=== PATIENT | male | born 1965 | race Caucasian/White ===

== ENCOUNTER 2024-09-27 15:26 | Inpatient (IN) | payer MEDICAID ==
[~2024-09-27] VITALS: Ht 182.9 cm; Wt 84.7 kg
[2024-09-27] MEDS: HEPARIN DRIP DVT/PE -**PHARMACIST TO DOSE IV ONE (15:50)
[2024-09-27] MEDS: HEPARIN DRIP INITAL BOLUS --- DO NOT GIVE/ORDER MC ONE (15:55)
[2024-09-27] MEDS ORDERED: heparin 25,000 UNIT/250ml bag 250 ML IV PRN (15:55)
[2024-09-27] MEDS: heparin 25,000 UNIT/250ml bag 250 ML IV PRN (16:21)
[2024-09-27 16:32] LABS: BASOPHILS # (AUTO) 0.1 X10'3 (0-0.2); BASOPHILS % (AUTO) 0.5 % (0-1); EOSINOPHILS # (AUTO) 0.1 X10'3 (0-0.9); EOSINOPHILS % (AUTO) 0.8 % (0-6); HEMATOCRIT 29.5 % (42.0-52.0); HEMOGLOBIN 9.6 g/dl (14.0-17.9); LYMPHOCYTES % (AUTO) 7.2 % (21-51); MEAN CORPUSCULAR HGB CONC 32.4 g/dL (33.0-36.5); MEAN CORPUSCULAR VOLUME 80.2 FL (78-98); MEAN PLATELET VOLUME 7.3 FL (7.4-10.4); MONOCYTES # (AUTO) 0.7 X10'3 (0-0.9); MONOCYTES % (AUTO) 5.2 % (2-12); NEUTROPHILS # (AUTO) 12.1 X10'3 (1.8-7.7); NEUTROPHILS % (AUTO) 86.3 % (42-75); PLATELET COUNT 385 X10'3 (140-440); RED BLOOD COUNT 3.68 X10'6 (4.70-6.10); RED CELL DISTRIBUTION WIDTH 14.9 % (11.5-14.5)
[2024-09-27 16:49] LABS: ALBUMIN 2.5 G/DL (3.4-5.0); ANION GAP 10 (8-16); BLOOD UREA NITROGEN 14 MG/DL (7-18); BUN/CREATININE RATIO 15.1 (10.0-20.0); CALCIUM 8.6 MG/DL (8.5-10.1); CHLORIDE 101 MMOL/L (99-107); CREATININE 0.93 MG/DL (0.60-1.10); GLUCOSE 92 MG/DL (70-104); POTASSIUM 4.3 MMOL/L (3.5-5.1); SODIUM 134 MMOL/L (135-145); TOTAL CARBON DIOXIDE 23.4 MMOL/L (24-32); eCRCL 96 ML/MIN; eGFR 84 ML/MIN
[2024-09-27] MEDS: MESSAGE TO NURSING IV ONE ×2 (16:55)
[2024-09-27] MEDS ORDERED: magnesium sulf-water 2g/50mL 50 ML IV PRN (18:10)
[2024-09-27] MEDS ORDERED: magnesium hydroxide 30ml (MOM) UD suspension PO PRN (18:10)
[2024-09-27] MEDS ORDERED: magnesium sulf-water 4G/100mL 100 ML IV PRN (18:10)
[2024-09-27] MEDS ORDERED: magnesium Cl slow-release 64mg tablet PO PRN (18:10)
[2024-09-27] MEDS ORDERED: HYDROcodone/acetaminophen 5mg/325mg tablet PO PRN (18:10)
[2024-09-27] MEDS ORDERED: potassium Cl 40MEQ/1/2NS 520ml 520 ML IV PRN (18:10)
[2024-09-27] MEDS ORDERED: potassium Cl 20 mEq SR tablet PO PRN ×2 (18:10)
[2024-09-27] MEDS ORDERED: mag hydrox/Alum hydrox/simeth 30ml oral suspension PO PRN (18:10)
[2024-09-27] MEDS ORDERED: ondansetron/PF 4mg/2ml inj IV PRN (18:10)
[2024-09-27] MEDS ORDERED: acetaminophen 325mg tablet PO PRN (18:10)
[2024-09-27] MEDS ORDERED: aminophylline 500mg/20ml vial IV PRN (19:30)
[2024-09-27] MEDS ORDERED: nitroGLYCERIN 0.4mg SUBLingual tab SL PRN (19:30)
[2024-09-27] MEDS ORDERED: metoprolol tartrate 1mg/ml inj IV PRN (19:30)
[2024-09-27] MEDS: K and/or MAG REPLACEMENT MC SCH (20:00)
[2024-09-27] MEDS: docusate sod 100mg capsule PO SCH (20:00)
[2024-09-27 22:30] VITALS: BP 127/65; PULSE 112; RESP 18; TEMP 98.7
[2024-09-27 23:00] VITALS: RESP 18; O2SAT 98
[2024-09-27] MEDS: heparin 10,000 units/1 ML INJ IV PRN (23:42)
[2024-09-28] VITALS (12 sets, daily range): BP systolic 97–119; BP diastolic 47–62; PULSE 100–109; RESP 14–20; TEMP 97.4–98.5; O2SAT 95–99
[2024-09-28] MEDS: MESSAGE TO NURSING IV ONE ×4 (00:11→21:24)
[2024-09-28 06:34] LABS: BASOPHILS # (AUTO) 0.1 X10'3 (0-0.2); BASOPHILS % (AUTO) 0.4 % (0-1); EOSINOPHILS # (AUTO) 0.1 X10'3 (0-0.9); EOSINOPHILS % (AUTO) 0.6 % (0-6); HEMATOCRIT 29.7 % (42.0-52.0); HEMOGLOBIN 9.5 g/dl (14.0-17.9); LYMPHOCYTES # (AUTO) 1.3 X10'3 (1.1-4.8); LYMPHOCYTES % (AUTO) 9.5 % (21-51); MEAN CORPUSCULAR HEMOGLOBIN 25.5 PG (27.0-31.0); MEAN CORPUSCULAR VOLUME 79.5 FL (78-98); MEAN PLATELET VOLUME 7.6 FL (7.4-10.4); MONOCYTES % (AUTO) 7.1 % (2-12); NEUTROPHILS # (AUTO) 11.5 X10'3 (1.8-7.7); NEUTROPHILS % (AUTO) 82.4 % (42-75); PLATELET COUNT 375 X10'3 (140-440); RED BLOOD COUNT 3.73 X10'6 (4.70-6.10); WHITE BLOOD COUNT 13.9 X10'3 (4.5-11.0)
[2024-09-28 06:52] LABS: ALANINE AMINOTRANSFERASE 41 U/L (12-78); ALBUMIN 2.4 G/DL (3.4-5.0); ALBUMIN/GLOBULIN RATIO 0.5 (1.1-1.5); ALKALINE PHOSPHATASE 132 IU/L (46-116); ANION GAP 8 (8-16); ASPARTATE AMINO TRANSFERASE 29 U/L (10-37); BLOOD UREA NITROGEN 11 MG/DL (7-18); BUN/CREATININE RATIO 13.1 (10.0-20.0); CALCIUM 8.5 MG/DL (8.5-10.1); CHLORIDE 99 MMOL/L (99-107); CREATININE 0.84 MG/DL (0.60-1.10); GLUCOSE 98 MG/DL (70-104); POTASSIUM 4.3 MMOL/L (3.5-5.1); SODIUM 132 MMOL/L (135-145); TOTAL CARBON DIOXIDE 25.2 MMOL/L (24-32); TOTAL PROTEIN 6.8 G/DL (6.4-8.2); eCRCL 106 ML/MIN; eGFR > 90 ML/MIN
[2024-09-28] MEDS: morphine 2 MG/ML inj. syringe IV PRN ×2 (07:02→11:40)
[2024-09-28] MEDS: regadenoson 0.4mg/5ml syringe IV PRN (10:11)
[2024-09-28] MEDS ORDERED: IBUP-2417 PO (11:31)
[2024-09-28] MEDS: ringers solution, lacted 1,000 ML IV ONE (16:11)
[2024-09-28] MEDS: HYDROcodone/acetaminophen 10/325mg tab PO PRN (19:30)
[2024-09-29] VITALS (32 sets, daily range): BP systolic 102–135; BP diastolic 42–69; PULSE 86–110; RESP 12–25; TEMP 96.7–99.5; O2SAT 94–100
[2024-09-29 03:20] LABS: BASOPHILS # (AUTO) 0.1 X10'3 (0-0.2); BASOPHILS % (AUTO) 0.7 % (0-1); EOSINOPHILS # (AUTO) 0.1 X10'3 (0-0.9); EOSINOPHILS % (AUTO) 0.8 % (0-6); HEMATOCRIT 27.3 % (42.0-52.0); LYMPHOCYTES # (AUTO) 1.1 X10'3 (1.1-4.8); LYMPHOCYTES % (AUTO) 7.7 % (21-51); MEAN CORPUSCULAR HEMOGLOBIN 25.7 PG (27.0-31.0); MEAN CORPUSCULAR HGB CONC 32.9 g/dL (33.0-36.5); MEAN CORPUSCULAR VOLUME 78.1 FL (78-98); MEAN PLATELET VOLUME 7.3 FL (7.4-10.4); MONOCYTES % (AUTO) 6.7 % (2-12); NEUTROPHILS # (AUTO) 11.9 X10'3 (1.8-7.7); NEUTROPHILS % (AUTO) 84.1 % (42-75); PLATELET COUNT 361 X10'3 (140-440); RED BLOOD COUNT 3.49 X10'6 (4.70-6.10); RED CELL DISTRIBUTION WIDTH 15.2 % (11.5-14.5); WHITE BLOOD COUNT 14.2 X10'3 (4.5-11.0)
[2024-09-29 03:37] LABS: % IRON SATURATION 11 % (11-46); IRON 20 UG/DL (53-167); TOTAL IRON BINDING CAPACITY 176 UG/DL (259-388)
[2024-09-29 03:56] LABS: ALANINE AMINOTRANSFERASE 33 U/L (12-78); ALBUMIN 2.3 G/DL (3.4-5.0); ALBUMIN/GLOBULIN RATIO 0.5 (1.1-1.5); ALKALINE PHOSPHATASE 115 IU/L (46-116); ANION GAP 8 (8-16); ASPARTATE AMINO TRANSFERASE 22 U/L (10-37); BILIRUBIN,TOTAL 0.7 MG/DL (0.1-1.0); BLOOD UREA NITROGEN 15 MG/DL (7-18); BUN/CREATININE RATIO 19.5 (10.0-20.0); CALCIUM 8.3 MG/DL (8.5-10.1); CHLORIDE 98 MMOL/L (99-107); CREATININE 0.77 MG/DL (0.60-1.10); FERRITIN 672 NG/ML (26-388); GLUCOSE 112 MG/DL (70-104); SODIUM 131 MMOL/L (135-145); TOTAL CARBON DIOXIDE 25.4 MMOL/L (24-32); TOTAL PROTEIN 6.6 G/DL (6.4-8.2); eCRCL 116 ML/MIN; eGFR > 90 ML/MIN
[2024-09-29] MEDS: MESSAGE TO NURSING IV ONE ×3 (06:02→23:25)
[2024-09-29 11:01] LABS: APTT 46 SECONDS (22-32)
[2024-09-29] MEDS ORDERED: heparin 10,000 units/1 ML INJ ONE (12:14)
[2024-09-29] MEDS ORDERED: rocuronium 10mg/ml inj IV ONE (15:19)
[2024-09-29] MEDS ORDERED: fentaNYL /PF 50mcg/ml 5ml ampule ONE (15:19)
[2024-09-29] MEDS ORDERED: sevoflurane 250ml liquid IH ONE (15:19)
[2024-09-29] MEDS ORDERED: propofol inj 20 ML IV ONE (15:19)
[2024-09-29] MEDS ORDERED: midazolam 1 mg/ML 2ml injection ONE (15:19)
[2024-09-29] MEDS ORDERED: ceFAZolin 1000mg inj ONE ×2 (15:55)
[2024-09-29] MEDS: ceFAZolin/D5W- 1GM premix 50 ML IV SCH (16:00)
[2024-09-29] MEDS ORDERED: heparin 25,000 UNIT/250ml bag 250 ML IV ONE (16:15)
[2024-09-29] MEDS ORDERED: dexamethasone sod phosphate 4mg/ml inj. ONE (16:34)
[2024-09-29] MEDS ORDERED: ondansetron/PF 4mg/2ml inj ONE (16:36)
[2024-09-29] MEDS ORDERED: HYDROmorphone/PF 0.2 MG/ML SYRINGE IV PRN (16:45)
[2024-09-29] MEDS: ringers solution, lacted 1,000 ML IV SCH (16:45)
[2024-09-29] MEDS ORDERED: labetalol 20mg/4ml (5mg/ml) syringe IV PRN (16:45)
[2024-09-29] MEDS ORDERED: meperidine/PF 25mg/ml syringe IV PRN (16:45)
[2024-09-29] MEDS ORDERED: ondansetron/PF 4mg/2ml inj IV PRN ×2 (16:45→19:55)
[2024-09-29] MEDS ORDERED: morphine 2 MG/ML inj. syringe IV PRN (16:45)
[2024-09-29] MEDS ORDERED: heparin 1,000unit/ml 10ml vial 10 ML ONE (17:23)
[2024-09-29] MEDS ORDERED: albumin (Human) 5% 250ml 250 ML IV ONE ×2 (17:48)
[2024-09-29] MEDS ORDERED: iohexol 300 MG/1 ML 50ml polymer ONE (18:20)
[2024-09-29] MEDS ORDERED: fentaNYL/PF 50MCG/1 ML 2ML syringe ONE (18:35)
[2024-09-29] MEDS ORDERED: sugammadex 200mg/2ml injection IV ONE (18:38)
[2024-09-29 19:09] LABS: APTT > 139 SECONDS (22-32)
[2024-09-29] MEDS: morphine 4 MG/ML inj SYRINge IV PRN (19:15)
[2024-09-29 19:27] LABS: BASOPHILS % (AUTO) 0.4 % (0-1); EOSINOPHILS % (AUTO) 0.2 % (0-6); HEMATOCRIT 25.6 % (42.0-52.0); HEMOGLOBIN 8.5 g/dl (14.0-17.9); LYMPHOCYTES # (AUTO) 0.6 X10'3 (1.1-4.8); LYMPHOCYTES % (AUTO) 4.4 % (21-51); MEAN CORPUSCULAR HEMOGLOBIN 25.9 PG (27.0-31.0); MEAN CORPUSCULAR HGB CONC 33.1 g/dL (33.0-36.5); MEAN CORPUSCULAR VOLUME 78.4 FL (78-98); MEAN PLATELET VOLUME 7.1 FL (7.4-10.4); MONOCYTES # (AUTO) 0.4 X10'3 (0-0.9); MONOCYTES % (AUTO) 3.1 % (2-12); NEUTROPHILS # (AUTO) 12.7 X10'3 (1.8-7.7); NEUTROPHILS % (AUTO) 91.9 % (42-75); PLATELET COUNT 308 X10'3 (140-440); RED BLOOD COUNT 3.27 X10'6 (4.70-6.10); RED CELL DISTRIBUTION WIDTH 14.6 % (11.5-14.5); WHITE BLOOD COUNT 13.8 X10'3 (4.5-11.0)
[2024-09-29] MEDS: acetaminophen 1,000mg/100ml IV 100 ML IV PRN (19:27)
[2024-09-29 19:41] LABS: ALANINE AMINOTRANSFERASE 24 U/L (12-78); ALBUMIN 2.5 G/DL (3.4-5.0); ALBUMIN/GLOBULIN RATIO 0.6 (1.1-1.5); ALKALINE PHOSPHATASE 106 IU/L (46-116); ANION GAP 8 (8-16); ASPARTATE AMINO TRANSFERASE 21 U/L (10-37); BLOOD UREA NITROGEN 13 MG/DL (7-18); BUN/CREATININE RATIO 13.8 (10.0-20.0); CALCIUM 8.1 MG/DL (8.5-10.1); CHLORIDE 101 MMOL/L (99-107); CREATININE 0.94 MG/DL (0.60-1.10); GLUCOSE 131 MG/DL (70-104); POTASSIUM 4.3 MMOL/L (3.5-5.1); SODIUM 132 MMOL/L (135-145); TOTAL CARBON DIOXIDE 22.7 MMOL/L (24-32); TOTAL PROTEIN 6.6 G/DL (6.4-8.2); eCRCL 95 ML/MIN; eGFR 83 ML/MIN
[2024-09-29] MEDS ORDERED: naloxone 0.4 mg/ml inj IV PRN (19:55)
[2024-09-29] MEDS ORDERED: HYDROcodone/acetaminophen 10/325mg tab PO PRN (19:55)
[2024-09-29] MEDS ORDERED: ceFAZolin 1GM/D5W- ADD-VANTAGE 50 ML IV SCH (20:00)
[2024-09-29] MEDS: HYDROmorphone/PF 0.2 MG/ML SYRINGE IV PRN (21:42)
[2024-09-29] MEDS: normal saline 1000ml 1,000 ML IV SCH (23:25)
[2024-09-29] MEDS: ceFAZolin 1GM/D5W- ADD-VANTAGE 50 ML IV SCH (23:32)
[2024-09-30] VITALS (28 sets, daily range): BP systolic 96–131; BP diastolic 42–63; PULSE 83–101; RESP 9–21; TEMP 96–96.7; O2SAT 93–99
[2024-09-30] MEDS: HYDROmorphone inj. 0.5 MG/0.5 ML DISP.SYRIN IV PRN (00:31)
[2024-09-30 02:42] LABS: BASOPHILS % (AUTO) 0.3 % (0-1); EOSINOPHILS % (AUTO) 0.1 % (0-6); HEMATOCRIT 25.5 % (42.0-52.0); HEMOGLOBIN 8.6 g/dl (14.0-17.9); LYMPHOCYTES # (AUTO) 0.5 X10'3 (1.1-4.8); LYMPHOCYTES % (AUTO) 5.7 % (21-51); MEAN CORPUSCULAR HEMOGLOBIN 26.7 PG (27.0-31.0); MEAN CORPUSCULAR VOLUME 78.7 FL (78-98); MEAN PLATELET VOLUME 7.4 FL (7.4-10.4); MONOCYTES # (AUTO) 0.2 X10'3 (0-0.9); MONOCYTES % (AUTO) 2.6 % (2-12); NEUTROPHILS # (AUTO) 8.6 X10'3 (1.8-7.7); NEUTROPHILS % (AUTO) 91.3 % (42-75); PLATELET COUNT 281 X10'3 (140-440); RED BLOOD COUNT 3.24 X10'6 (4.70-6.10); RED CELL DISTRIBUTION WIDTH 15.1 % (11.5-14.5); WHITE BLOOD COUNT 9.4 X10'3 (4.5-11.0)
[2024-09-30 02:57] LABS: ALANINE AMINOTRANSFERASE 25 U/L (12-78); ALBUMIN 2.5 G/DL (3.4-5.0); ALBUMIN/GLOBULIN RATIO 0.6 (1.1-1.5); ALKALINE PHOSPHATASE 107 IU/L (46-116); ANION GAP 8 (8-16); ASPARTATE AMINO TRANSFERASE 21 U/L (10-37); BILIRUBIN,TOTAL 0.5 MG/DL (0.1-1.0); BLOOD UREA NITROGEN 15 MG/DL (7-18); BUN/CREATININE RATIO 17.6 (10.0-20.0); CALCIUM 8.3 MG/DL (8.5-10.1); CHLORIDE 102 MMOL/L (99-107); CREATININE 0.85 MG/DL (0.60-1.10); GLUCOSE 182 MG/DL (70-104); POTASSIUM 4.4 MMOL/L (3.5-5.1); SODIUM 134 MMOL/L (135-145); TOTAL CARBON DIOXIDE 23.8 MMOL/L (24-32); TOTAL PROTEIN 6.8 G/DL (6.4-8.2); eCRCL 105 ML/MIN; eGFR > 90 ML/MIN
[2024-09-30] MEDS ORDERED: DOXY25TA PO (17:56)
[2024-09-30] MEDS: aspirin 81mg, enteric-coated 1 TAB TABLET.DR PO ONE (20:33)
[2024-09-30] MEDS: ceFOXitin sod/dextrose 2g/50ml 50 ML IV SCH (20:58)
[2024-10-01] VITALS (19 sets, daily range): BP systolic 118–140; BP diastolic 55–76; PULSE 96–109; RESP 14–28; TEMP 97.3–98.1; O2SAT 85–100
[2024-10-01 03:23] LABS: BASOPHILS # (AUTO) 0.1 X10'3 (0-0.2); BASOPHILS % (AUTO) 0.5 % (0-1); EOSINOPHILS # (AUTO) 0.1 X10'3 (0-0.9); HEMATOCRIT 26.9 % (42.0-52.0); HEMOGLOBIN 8.9 g/dl (14.0-17.9); LYMPHOCYTES # (AUTO) 1.5 X10'3 (1.1-4.8); LYMPHOCYTES % (AUTO) 13.1 % (21-51); MEAN CORPUSCULAR HEMOGLOBIN 26.1 PG (27.0-31.0); MEAN PLATELET VOLUME 7.3 FL (7.4-10.4); MONOCYTES # (AUTO) 1.2 X10'3 (0-0.9); MONOCYTES % (AUTO) 10.3 % (2-12); NEUTROPHILS # (AUTO) 8.6 X10'3 (1.8-7.7); NEUTROPHILS % (AUTO) 75.1 % (42-75); PLATELET COUNT 324 X10'3 (140-440); RED CELL DISTRIBUTION WIDTH 14.9 % (11.5-14.5); WHITE BLOOD COUNT 11.4 X10'3 (4.5-11.0)
[2024-10-01 03:41] LABS: ALANINE AMINOTRANSFERASE 22 U/L (12-78); ALBUMIN 2.4 G/DL (3.4-5.0); ALBUMIN/GLOBULIN RATIO 0.6 (1.1-1.5); ALKALINE PHOSPHATASE 98 IU/L (46-116); ANION GAP 5 (8-16); ASPARTATE AMINO TRANSFERASE 15 U/L (10-37); BILIRUBIN,TOTAL 0.3 MG/DL (0.1-1.0); BLOOD UREA NITROGEN 20 MG/DL (7-18); BUN/CREATININE RATIO 18.2 (10.0-20.0); CALCIUM 8.3 MG/DL (8.5-10.1); CHLORIDE 103 MMOL/L (99-107); GLUCOSE 116 MG/DL (70-104); MAGNESIUM 2.2 MG/DL (1.5-2.4); SODIUM 135 MMOL/L (135-145); TOTAL CARBON DIOXIDE 27.5 MMOL/L (24-32); TOTAL PROTEIN 6.4 G/DL (6.4-8.2); eCRCL 81 ML/MIN; eGFR 69 ML/MIN
[2024-10-01] MEDS: aspirin 81mg, enteric-coated 1 TAB TABLET.DR PO SCH (08:53)
[2024-10-01] MEDS: metoprolol tartrate 12.5mg (1/2 tablet) PO SCH (12:10)
[2024-10-02 02:00] VITALS: BP 147/67; PULSE 111; RESP 22; TEMP 97.6; O2SAT 95
[2024-10-02 06:00] VITALS: BP 143/76; PULSE 103; RESP 24; TEMP 97.1; O2SAT 92
[2024-10-02 06:18] LABS: BASOPHILS # (AUTO) 0.1 X10'3 (0-0.2); BASOPHILS % (AUTO) 0.5 % (0-1); EOSINOPHILS # (AUTO) 0.1 X10'3 (0-0.9); EOSINOPHILS % (AUTO) 0.7 % (0-6); HEMATOCRIT 28.9 % (42.0-52.0); HEMOGLOBIN 9.7 g/dl (14.0-17.9); LYMPHOCYTES # (AUTO) 1.1 X10'3 (1.1-4.8); LYMPHOCYTES % (AUTO) 9.2 % (21-51); MEAN CORPUSCULAR HEMOGLOBIN 26.4 PG (27.0-31.0); MEAN CORPUSCULAR HGB CONC 33.4 g/dL (33.0-36.5); MEAN CORPUSCULAR VOLUME 79.1 FL (78-98); MEAN PLATELET VOLUME 7.4 FL (7.4-10.4); MONOCYTES # (AUTO) 1.2 X10'3 (0-0.9); MONOCYTES % (AUTO) 9.7 % (2-12); NEUTROPHILS # (AUTO) 9.8 X10'3 (1.8-7.7); NEUTROPHILS % (AUTO) 79.9 % (42-75); PLATELET COUNT 388 X10'3 (140-440); RED BLOOD COUNT 3.66 X10'6 (4.70-6.10); RED CELL DISTRIBUTION WIDTH 15.3 % (11.5-14.5); WHITE BLOOD COUNT 12.2 X10'3 (4.5-11.0)
[2024-10-02 06:51] LABS: ALANINE AMINOTRANSFERASE 24 U/L (12-78); ALBUMIN 2.6 G/DL (3.4-5.0); ALBUMIN/GLOBULIN RATIO 0.6 (1.1-1.5); ALKALINE PHOSPHATASE 118 IU/L (46-116); ANION GAP 7 (8-16); ASPARTATE AMINO TRANSFERASE 15 U/L (10-37); BILIRUBIN,TOTAL 0.5 MG/DL (0.1-1.0); BLOOD UREA NITROGEN 12 MG/DL (7-18); BUN/CREATININE RATIO 17.1 (10.0-20.0); CALCIUM 8.9 MG/DL (8.5-10.1); CHLORIDE 101 MMOL/L (99-107); GLUCOSE 114 MG/DL (70-104); POTASSIUM 4.3 MMOL/L (3.5-5.1); SODIUM 135 MMOL/L (135-145); TOTAL CARBON DIOXIDE 27.2 MMOL/L (24-32); TOTAL PROTEIN 6.9 G/DL (6.4-8.2); eCRCL 128 ML/MIN; eGFR > 90 ML/MIN
[2024-10-02 10:00] VITALS: BP 129/56; PULSE 103; RESP 19; TEMP 97.6; O2SAT 98
[2024-10-02] MEDS ORDERED: LOP12.5T PO (11:52)
[2024-10-02] MEDS ORDERED: ASPI-1071 PO (11:52)
== END 2024-10-02 13:40 | disposition home or self-care (01) | DRG 181 ==
LOC: ER 15:28 → UNDOADMIN 18:06 → ED HOLD 18:06 → ORTHO 4S 22:30 → CICU 2S 09-29 23:00 → PCU 3S 10-01 13:16
PROVIDERS: ADMIT Internal Medicine; ATTEND Internal Medicine
PROC: 4A02XM4 Measurement of Cardiac Total Activity, External Approach (ICD-10-PCS; 2024-09-28)
PROC: 3E033HZ Introduction of Radioactive Substance into Peripheral Vein, Percutaneous Approach (ICD-10-PCS; 2024-09-28)
PROC: 041K09L Bypass Right Femoral Artery to Popliteal Artery with Autologous Venous Tissue, Open Approach (ICD-10-PCS; principal; 2024-09-29 15:19)
DX: I70.221 Atherosclerosis of native arteries of extremities with rest pain, right leg (principal); E44.1 Mild protein-calorie malnutrition; E87.1 Hypo-osmolality and hyponatremia; D64.9 Anemia, unspecified; Z87.891 Personal history of nicotine dependence; Z68.25 Body mass index [BMI] 25.0-25.9, adult
CPT/HCPCS: 36415; 73551; 76000; 78452; 80048; 80053; 82607; 82728; 82948; 83540; 83550; 83735; 85025; 85730; 86885; 86900; 86901; 86920; 87081; 93005; 93017; 93922; 93926; 93970; 99285; A4615; A4618; A6253; A6258; A6260; A6402; A6446; A6449; A6455; A7000; A9500; C1758; G0378; J0131; J0690; J0694; J1100; J1171; J1644; J2250; J2270; J2405; J2704; J2785; J3010; J3490; J7030; J7040; J7120; P9045; Q9967

== ENCOUNTER 2024-11-02 08:32 | Outpatient (CLI) | payer MEDICAID ==
[~2024-11-02 08:32] MED LIST: ASPI-1071 PO; DOXY25TA PO; IBUP-2417 PO; LOP12.5T PO
== END 2024-11-02 23:59 | disposition home or self-care (01) ==
LOC: VAS 08:32
PROVIDERS: ATTEND Surgery
DX: I73.9 Peripheral vascular disease, unspecified (principal)
CPT/HCPCS: 93922; 93926

== ENCOUNTER 2024-11-09 15:18 | Inpatient (IN) | payer MEDICAID ==
[~2024-11-09] VITALS: Ht 182.9 cm; Wt 85.0 kg
[2024-11-09 16:25] VITALS: BP 98/65; PULSE 81; RESP 18; TEMP 97.9; O2SAT 99
[2024-11-09] MEDS ORDERED: magnesium hydroxide 30ml (MOM) UD suspension PO PRN (17:45)
[2024-11-09] MEDS ORDERED: acetaminophen 325mg tablet PO PRN (17:45)
[2024-11-09] MEDS ORDERED: ondansetron/PF 4mg/2ml inj IV PRN (17:45)
[2024-11-09] MEDS ORDERED: potassium Cl 40MEQ/1/2NS 520ml 520 ML IV PRN (17:45)
[2024-11-09] MEDS ORDERED: potassium Cl 20 mEq SR tablet PO PRN ×2 (17:45)
[2024-11-09] MEDS ORDERED: mag hydrox/Alum hydrox/simeth 30ml oral suspension PO PRN (17:45)
[2024-11-09] MEDS ORDERED: magnesium sulf-water 2g/50mL 50 ML IV PRN (17:45)
[2024-11-09] MEDS ORDERED: magnesium sulf-water 4G/100mL 100 ML IV PRN (17:45)
[2024-11-09 18:00] VITALS: BP 98/65; PULSE 81; RESP 18; TEMP 97.9; O2SAT 99
[2024-11-09] MEDS ORDERED: oxyCODONE/APAP 5-325mg tablet PO PRN (18:40)
[2024-11-09] MEDS ORDERED: CYCL-920 PO (18:49)
[2024-11-09] MEDS: K and/or MAG REPLACEMENT MC SCH (20:00)
[2024-11-09] MEDS: oxyCODONE/APAP 10/325mg tablet PO PRN (20:21)
[2024-11-09] MEDS: docusate sod 100mg capsule PO SCH (20:21)
[2024-11-09 22:00] VITALS: BP 89/29; PULSE 82; RESP 18; TEMP 97.5; O2SAT 98
[2024-11-10 01:18] VITALS: RESP 16; O2SAT 98
[2024-11-10] MEDS: heparin, porcine 5000 units/ml vial SQ SCH (01:27)
[2024-11-10] MEDS: normal saline 1000ml 1,000 ML IV SCH (01:39)
[2024-11-10] MEDS: HYDROmorphone inj. 0.5 MG/0.5 ML DISP.SYRIN IV PRN (05:47)
[2024-11-10 06:00] VITALS: BP 128/59; PULSE 85; RESP 17; TEMP 98.6; O2SAT 98
[2024-11-10 06:03] LABS: BASOPHILS # (AUTO) 0.1 X10'3 (0-0.2); BASOPHILS % (AUTO) 0.6 % (0-1); EOSINOPHILS # (AUTO) 0.1 X10'3 (0-0.9); EOSINOPHILS % (AUTO) 0.8 % (0-6); HEMATOCRIT 35.2 % (42.0-52.0); HEMOGLOBIN 11.2 g/dl (14.0-17.9); LYMPHOCYTES # (AUTO) 1.5 X10'3 (1.1-4.8); LYMPHOCYTES % (AUTO) 15.6 % (21-51); MEAN CORPUSCULAR HEMOGLOBIN 27.4 PG (27.0-31.0); MEAN CORPUSCULAR HGB CONC 31.7 g/dL (33.0-36.5); MEAN CORPUSCULAR VOLUME 86.4 FL (78-98); MEAN PLATELET VOLUME 8.3 FL (7.4-10.4); MONOCYTES % (AUTO) 10.8 % (2-12); NEUTROPHILS % (AUTO) 72.2 % (42-75); PLATELET COUNT 208 X10'3 (140-440); RED BLOOD COUNT 4.07 X10'6 (4.70-6.10); RED CELL DISTRIBUTION WIDTH 21.5 % (11.5-14.5); WHITE BLOOD COUNT 9.7 X10'3 (4.5-11.0)
[2024-11-10 06:30] LABS: ALBUMIN 2.6 G/DL (3.4-5.0); ALBUMIN/GLOBULIN RATIO 0.9 (1.1-1.5); ALKALINE PHOSPHATASE 320 IU/L (46-116); ANION GAP 13 (8-16); ASPARTATE AMINO TRANSFERASE 956 U/L (10-37); BILIRUBIN,TOTAL 1.3 MG/DL (0.1-1.0); BLOOD UREA NITROGEN 80 MG/DL (7-18); BUN/CREATININE RATIO 37.7 (10.0-20.0); CALCIUM 7.9 MG/DL (8.5-10.1); CHLORIDE 101 MMOL/L (99-107); CREATININE 2.12 MG/DL (0.60-1.10); GLUCOSE 100 MG/DL (70-104); MAGNESIUM 2.6 MG/DL (1.5-2.4); POTASSIUM 4.1 MMOL/L (3.5-5.1); SODIUM 133 MMOL/L (135-145); TOTAL CARBON DIOXIDE 19.2 MMOL/L (24-32); TOTAL PROTEIN 5.4 G/DL (6.4-8.2); eCRCL 42 ML/MIN; eGFR 32 ML/MIN
[2024-11-10 06:34] LABS: ALANINE AMINOTRANSFERASE 1968 U/L (12-78)
[2024-11-10] MEDS: OLANZapine **IM** 10 mg inj. IM ONE ×2 (07:51→16:17)
[2024-11-10 08:52] LABS: ANISOCYTOSIS 3+; BURR CELLS 1+; PLATELET ESTIMATE NORMAL
[2024-11-10 08:53] LABS: ELLIPTOCYTES FEW
[2024-11-10 08:54] LABS: POLYCHROMASIA FEW
[2024-11-10 11:00] VITALS: BP 113/62; PULSE 80; RESP 19; TEMP 97.8; O2SAT 97
[2024-11-10] MEDS: HYDROmorphone 1 mg/ml syringe IV PRN (16:16)
[2024-11-10 18:00] VITALS: BP 131/56; PULSE 92; RESP 17; TEMP 97.5; O2SAT 98
[2024-11-10 22:00] VITALS: BP 123/50; PULSE 70; RESP 16; TEMP 98.4; O2SAT 98
[2024-11-11 06:00] VITALS: BP 155/63; PULSE 77; RESP 16; TEMP 98.7; O2SAT 98
[2024-11-11 08:33] LABS: HBSAG SCREEN Negative (Negative); HEP A AB, IGM Negative (Negative); HEP B CORE AB, IGM Negative (Negative)
[2024-11-11] MEDS: aspirin 81mg tab.chew PO SCH (09:24)
[2024-11-11] MEDS: clopidogrel 75mg tablet PO SCH (09:25)
[2024-11-11 10:00] VITALS: BP 123/55; PULSE 100; RESP 16; TEMP 97.4; O2SAT 96
[2024-11-11 10:58] LABS: BASOPHILS % (AUTO) 0.5 % (0-1); EOSINOPHILS % (AUTO) 0.2 % (0-6); HEMATOCRIT 32.6 % (42.0-52.0); HEMOGLOBIN 10.4 g/dl (14.0-17.9); LYMPHOCYTES # (AUTO) 0.9 X10'3 (1.1-4.8); LYMPHOCYTES % (AUTO) 10.3 % (21-51); MEAN CORPUSCULAR HEMOGLOBIN 27.8 PG (27.0-31.0); MEAN CORPUSCULAR HGB CONC 31.9 g/dL (33.0-36.5); MEAN CORPUSCULAR VOLUME 87.4 FL (78-98); MONOCYTES % (AUTO) 12.3 % (2-12); NEUTROPHILS # (AUTO) 6.5 X10'3 (1.8-7.7); NEUTROPHILS % (AUTO) 76.7 % (42-75); PLATELET COUNT 161 X10'3 (140-440); RED BLOOD COUNT 3.74 X10'6 (4.70-6.10); RED CELL DISTRIBUTION WIDTH 22.3 % (11.5-14.5); WHITE BLOOD COUNT 8.5 X10'3 (4.5-11.0)
[2024-11-11 11:27] LABS: ALBUMIN 2.3 G/DL (3.4-5.0); ALBUMIN/GLOBULIN RATIO 0.7 (1.1-1.5); ALKALINE PHOSPHATASE 293 IU/L (46-116); ANION GAP 8 (8-16); ASPARTATE AMINO TRANSFERASE 402 U/L (10-37); BILIRUBIN,TOTAL 1.3 MG/DL (0.1-1.0); BLOOD UREA NITROGEN 53 MG/DL (7-18); BUN/CREATININE RATIO 43.1 (10.0-20.0); CALCIUM 7.9 MG/DL (8.5-10.1); CHLORIDE 105 MMOL/L (99-107); CREATININE 1.23 MG/DL (0.60-1.10); GLUCOSE 124 MG/DL (70-104); MAGNESIUM 2.7 MG/DL (1.5-2.4); POTASSIUM 3.6 MMOL/L (3.5-5.1); SODIUM 136 MMOL/L (135-145); TOTAL CARBON DIOXIDE 23.4 MMOL/L (24-32); TOTAL PROTEIN 5.6 G/DL (6.4-8.2); eCRCL 72 ML/MIN; eGFR 60 ML/MIN
[2024-11-11 11:33] LABS: ALANINE AMINOTRANSFERASE 1184 U/L (12-78)
[2024-11-11] MEDS: OLANZapine 5mg rapidly disint. tablet PO PRN (14:38)
[2024-11-11 18:00] VITALS: BP 127/64; PULSE 120; RESP 18; TEMP 98.3; O2SAT 92
[2024-11-11 22:00] VITALS: BP 142/61; PULSE 109; RESP 18; TEMP 97.7; O2SAT 93
[2024-11-12 02:01] VITALS: PULSE 98
[2024-11-12 05:12] VITALS: PULSE 112; RESP 22; O2SAT 90
[2024-11-12] MEDS ORDERED: furosemide 20 MG/2 ML vial IV ONE (05:55)
[2024-11-12 06:09] LABS: BASOPHILS % (AUTO) 0.4 % (0-1); EOSINOPHILS % (AUTO) 0.1 % (0-6); HEMATOCRIT 36.4 % (42.0-52.0); HEMOGLOBIN 11.2 g/dl (14.0-17.9); LYMPHOCYTES # (AUTO) 0.9 X10'3 (1.1-4.8); LYMPHOCYTES % (AUTO) 8.9 % (21-51); MEAN CORPUSCULAR HEMOGLOBIN 27.5 PG (27.0-31.0); MEAN CORPUSCULAR HGB CONC 30.8 g/dL (33.0-36.5); MEAN CORPUSCULAR VOLUME 89.5 FL (78-98); MEAN PLATELET VOLUME 8.4 FL (7.4-10.4); MONOCYTES % (AUTO) 9.7 % (2-12); NEUTROPHILS # (AUTO) 8.2 X10'3 (1.8-7.7); NEUTROPHILS % (AUTO) 80.9 % (42-75); PLATELET COUNT 171 X10'3 (140-440); RED BLOOD COUNT 4.07 X10'6 (4.70-6.10); RED CELL DISTRIBUTION WIDTH 23.3 % (11.5-14.5); WHITE BLOOD COUNT 10.1 X10'3 (4.5-11.0)
[2024-11-12 06:33] LABS: ANISOCYTOSIS 3+; ELLIPTOCYTES FEW; PLATELET ESTIMATE NORMAL; TARGET CELLS FEW
[2024-11-12 06:34] LABS: BURR CELLS FEW
[2024-11-12 06:38] LABS: ALANINE AMINOTRANSFERASE 976 U/L (12-78); ALBUMIN 2.6 G/DL (3.4-5.0); ALBUMIN/GLOBULIN RATIO 0.7 (1.1-1.5); ALKALINE PHOSPHATASE 301 IU/L (46-116); ANION GAP 15 (8-16); ASPARTATE AMINO TRANSFERASE 305 U/L (10-37); BILIRUBIN,TOTAL 1.7 MG/DL (0.1-1.0); BLOOD UREA NITROGEN 38 MG/DL (7-18); BUN/CREATININE RATIO 36.5 (10.0-20.0); CALCIUM 7.9 MG/DL (8.5-10.1); CHLORIDE 108 MMOL/L (99-107); CREATININE 1.04 MG/DL (0.60-1.10); GLUCOSE 146 MG/DL (70-104); MAGNESIUM 2.6 MG/DL (1.5-2.4); POTASSIUM 3.6 MMOL/L (3.5-5.1); PRO BRAIN NATRIURETIC PEPTIDE 4998 PG/ML (0-125); SODIUM 141 MMOL/L (135-145); TOTAL CARBON DIOXIDE 17.8 MMOL/L (24-32); TOTAL PROTEIN 6.1 G/DL (6.4-8.2); eCRCL 85 ML/MIN; eGFR 73 ML/MIN
[2024-11-12 11:30] VITALS: RESP 18; O2SAT 94
[2024-11-12] MEDS ORDERED: ondansetron/PF 4mg/2ml inj IV PRN (13:05)
[2024-11-12] MEDS ORDERED: meperidine/PF 25mg/ml syringe IV PRN ×3 (13:05)
[2024-11-12] MEDS ORDERED: enalaprilat 1.25mg/ml 2ml vial IV PRN (13:05)
[2024-11-12] MEDS ORDERED: morphine 4 MG/ML inj SYRINge IV PRN (13:05)
[2024-11-12] MEDS ORDERED: labetalol 20mg/4ml (5mg/ml) syringe IV PRN (13:05)
[2024-11-12] MEDS ORDERED: morphine 2 MG/ML inj. syringe IV PRN (13:05)
[2024-11-12] MEDS ORDERED: proCHLORperazine 10 MG/2 ml inj IV PRN (13:05)
[2024-11-12] MEDS: ringers solution, lacted 1,000 ML IV SCH (13:05)
[2024-11-12] MEDS ORDERED: povidone-iodine 10% ointment 1 APPLIC APPLIC TP ONE (13:28)
[2024-11-12] MEDS ORDERED: BUPIVAcaine 2.5mg/ml inj 50ml vial (contains preservative) ONE (13:28)
[2024-11-12] MEDS ORDERED: OLANZapine **IM** 10 mg inj. IM PRN (15:00)
[2024-11-12] MEDS ORDERED: OLANZapine 5mg rapidly disint. tablet PO PRN (15:00)
[2024-11-12] MEDS: furosemide 40mg/4ml inj IV ONE (17:16)
[2024-11-12 18:00] VITALS: BP 120/54; PULSE 75; RESP 20; TEMP 97.8; O2SAT 95
[2024-11-12] MEDS ORDERED: furosemide 20 MG/2 ML vial IV SCH (20:00)
[2024-11-14 11:09] LABS: HEPATITIS C VIRUS ANTIBODY Reactive (Non Reactive)
== END 2024-11-12 20:45 | disposition left against medical advice (07) | DRG 469 ==
LOC: ORTHO 4S 16:13
PROVIDERS: ADMIT Family Medicine; ATTEND Family Medicine
DX: N17.0 Acute kidney failure with tubular necrosis (principal); J96.00 Acute respiratory failure, unspecified whether with hypoxia or hypercapnia; K72.00 Acute and subacute hepatic failure without coma; I50.33 Acute on chronic diastolic (congestive) heart failure; Z53.21 Procedure and treatment not carried out due to patient leaving prior to being seen by health care provider; I11.0 Hypertensive heart disease with heart failure; I73.9 Peripheral vascular disease, unspecified
CPT/HCPCS: 36415; 71045; 74181; 76770; 80053; 80074; 82948; 83735; 83880; 85008; 85025; 87081; 93922; 93926; 93971; 97116; 97162; 99285; A4615; A6196; A6212; A6213; A6253; A6258; A6449; G0378; J1171; J1644; J1940; J3490; J7030; J7120

== ENCOUNTER 2024-11-13 01:03 | Inpatient (IN) | payer MEDICAID ==
[~2024-11-13] VITALS: Ht 182.9 cm; Wt 88.0 kg
[~2024-11-13 01:03] MED LIST changes: +CYCL-920 PO
[2024-11-13 03:28] LABS: BASOPHILS % (AUTO) 0.5 % (0-1); EOSINOPHILS % (AUTO) 0.1 % (0-6); HEMATOCRIT 35.5 % (42.0-52.0); HEMOGLOBIN 11.2 g/dl (14.0-17.9); LYMPHOCYTES # (AUTO) 1.3 X10'3 (1.1-4.8); LYMPHOCYTES % (AUTO) 13.4 % (21-51); MEAN CORPUSCULAR HEMOGLOBIN 27.9 PG (27.0-31.0); MEAN CORPUSCULAR HGB CONC 31.4 g/dL (33.0-36.5); MEAN CORPUSCULAR VOLUME 88.9 FL (78-98); MEAN PLATELET VOLUME 8.3 FL (7.4-10.4); MONOCYTES # (AUTO) 1.1 X10'3 (0-0.9); PLATELET COUNT 129 X10'3 (140-440); RED CELL DISTRIBUTION WIDTH 23.5 % (11.5-14.5); WHITE BLOOD COUNT 9.5 X10'3 (4.5-11.0)
[2024-11-13 03:39] LABS: ALANINE AMINOTRANSFERASE 738 U/L (12-78); ALBUMIN 2.7 G/DL (3.4-5.0); ALBUMIN/GLOBULIN RATIO 0.8 (1.1-1.5); ALKALINE PHOSPHATASE 271 IU/L (46-116); ANION GAP 10 (8-16); ASPARTATE AMINO TRANSFERASE 181 U/L (10-37); BILIRUBIN,TOTAL 1.9 MG/DL (0.1-1.0); BLOOD UREA NITROGEN 33 MG/DL (7-18); CALCIUM 8.1 MG/DL (8.5-10.1); CHLORIDE 108 MMOL/L (99-107); ETHANOL < 10 MG/DL (<10); GLUCOSE 113 MG/DL (70-104); POTASSIUM 4.1 MMOL/L (3.5-5.1); SODIUM 139 MMOL/L (135-145); TOTAL PROTEIN 6.2 G/DL (6.4-8.2); eCRCL 88 ML/MIN; eGFR 77 ML/MIN
[2024-11-13 04:15] LABS: PLATELET ESTIMATE DECREASED
[2024-11-13 04:18] LABS: ANISOCYTOSIS 3+
[2024-11-13] MEDS ORDERED: potassium Cl 20 mEq SR tablet PO PRN ×2 (04:25)
[2024-11-13] MEDS ORDERED: magnesium sulf-water 2g/50mL 50 ML IV PRN (04:25)
[2024-11-13] MEDS ORDERED: potassium Cl 40MEQ/1/2NS 520ml 520 ML IV PRN (04:25)
[2024-11-13] MEDS ORDERED: acetaminophen 325mg tablet PO PRN (04:25)
[2024-11-13] MEDS ORDERED: bisacodyl 10mg suppository rectal RC PRN (04:25)
[2024-11-13] MEDS ORDERED: mag hydrox/Alum hydrox/simeth 30ml oral suspension PO PRN (04:25)
[2024-11-13] MEDS ORDERED: HYDROcodone/acetaminophen 5mg/325mg tablet PO PRN (04:25)
[2024-11-13] MEDS ORDERED: morphine 2 MG/ML inj. syringe IV PRN (04:25)
[2024-11-13] MEDS ORDERED: magnesium hydroxide 30ml (MOM) UD suspension PO PRN (04:25)
[2024-11-13] MEDS ORDERED: ondansetron/PF 4mg/2ml inj IV PRN (04:25)
[2024-11-13] MEDS ORDERED: magnesium Cl slow-release 64mg tablet PO PRN (04:25)
[2024-11-13] MEDS ORDERED: magnesium sulf-water 4G/100mL 100 ML IV PRN (04:25)
[2024-11-13] MEDS ORDERED: HYDROmorphone inj. 0.5 MG/0.5 ML DISP.SYRIN IV PRN (04:25)
[2024-11-13 05:05] LABS: MAGNESIUM 2.3 MG/DL (1.5-2.4); PRO BRAIN NATRIURETIC PEPTIDE 7089 PG/ML (0-125)
[2024-11-13] MEDS ORDERED: OLANZapine 5mg rapidly disint. tablet PO PRN (07:50)
[2024-11-13] MEDS: K and/or MAG REPLACEMENT MC SCH (08:00)
[2024-11-13] MEDS ORDERED: furosemide 20 MG/2 ML vial IV SCH (08:00)
[2024-11-13] MEDS ORDERED: heparin, porcine 5000 units/ml vial SQ SCH (08:00)
[2024-11-13 08:23] VITALS: BP 147/65; PULSE 109; RESP 20; TEMP 97.8; O2SAT 98
[2024-11-13] MEDS: morphine 2 MG/ML inj. syringe IV PRN (08:38)
[2024-11-13] MEDS: furosemide 20 MG/2 ML vial IV SCH (08:41)
[2024-11-13] MEDS: docusate sod 100mg capsule PO SCH (08:42)
[2024-11-13] MEDS: clopidogrel 75mg tablet PO SCH (08:42)
[2024-11-13] MEDS: aspirin 81mg, enteric-coated 1 TAB TABLET.DR PO SCH (08:42)
[2024-11-13] MEDS: OLANZapine **IM** 10 mg inj. IM PRN (09:24)
[2024-11-13] MEDS: nicotine 21mg patch - 24 hr TD SCH (09:30)
[2024-11-13 10:00] VITALS: BP 147/72; PULSE 109; RESP 24; TEMP 97.8; O2SAT 97
[2024-11-13 10:22] LABS: BILIRUBIN,URINE SMALL (Neg); CLARITY,URINE CLOUDY (Clear); GLUCOSE, URINE NEGATIVE (Neg); KETONES,URINE NEGATIVE (Neg); LEUKOCYTE ESTERASE ,URINE NEGATIVE (Neg); NITRITES, URINE NEGATIVE (Neg); OCCULT BLOOD,URINE LARGE (Neg); PH,URINE 5.5 (4.8-8.0); PROTEIN,URINE 30 mg/dl (Neg); UROBILINOGEN,URINE 0.2 E.U/dL (0.2-1.0)
[2024-11-13 10:30] LABS: COLOR,URINE DARK YELLOW (Yellow); UA COLLECTION TYPE URINAL
[2024-11-13 10:34] VITALS: RESP 18; O2SAT 96
[2024-11-13 10:39] LABS: BACTERIA,URINE FEW /HPF (Neg); RBC,URINE TNTC /HPF (0-2); WBC,URINE 0-4 /HPF (0-4)
[2024-11-13 10:40] LABS: HYALINE CASTS 0-3 /LPF (NEGATIVE); MUCUS STRANDS NONE SEEN /LPF (Neg); RENAL CELLS, URINE FEW /HPF; SQUAMOUS EPITHELIAL CELL,UR NONE SEEN /LPF (FEW)
[2024-11-13 10:56] LABS: URINE AMPHETAMINE SCREEN NEGATIVE (Neg); URINE BARBITUATE SCREEN NEGATIVE (Neg); URINE BENZODIAZEPINES SCREEN NEGATIVE (Neg); URINE CANNABINOID SCREEN NEGATIVE (Neg); URINE COCAINE SCREEN NEGATIVE (Neg); URINE METHADONE SCREEN NEGATIVE (Neg); URINE OPIATE SCREEN POSITIVE (Neg); URINE PHENCYCLIDINE SCREEN NEGATIVE (Neg)
== END 2024-11-13 13:09 | disposition left against medical advice (07) | DRG 133 ==
LOC: ER 01:03 → ED HOLD 04:27 → SUR 3N 07:44
PROVIDERS: ADMIT Internal Medicine Critical Care Medicine; ATTEND Family Medicine
DX: J96.00 Acute respiratory failure, unspecified whether with hypoxia or hypercapnia (principal); I50.33 Acute on chronic diastolic (congestive) heart failure; S81.801A Unspecified open wound, right lower leg, initial encounter; Z53.21 Procedure and treatment not carried out due to patient leaving prior to being seen by health care provider; R74.01 Elevation of levels of liver transaminase levels; I73.9 Peripheral vascular disease, unspecified; X58.XXXA Exposure to other specified factors, initial encounter; Y93.89 Activity, other specified; Y92.89 Other specified places as the place of occurrence of the external cause; Y99.8 Other external cause status
CPT/HCPCS: 36415; 70450; 71045; 80053; 80305; 80320; 81001; 82948; 83735; 83880; 85008; 85025; 93005; 96372; 96374; 96375; 99285; A6402; A6449; G0378; J1940; J2270; J3490